=== PATIENT | female | born 2000 | race Two or more races ===

== ENCOUNTER 2022-04-23 15:19 | Emergency (ER) | payer OTHER ==
[~2022-04-23] VITALS: Ht 162.6 cm; Wt 76.7 kg
[2022-04-23 15:48] VITALS: BP 115/75
--- NOTE | 2022-04-23 17:19 | NUR ---
CALLED TO ROOM-IN,NO ANSWER
[2022-04-23] MEDS ORDERED: ACET325T53 PO (19:15)
[2022-04-23] MEDS ORDERED: IBUP-1955 PO (19:15)
[2022-04-23] MEDS ORDERED: IBUPROFEN 600 MG TABLET ONE (19:27)
[2022-04-23] MEDS ORDERED: IBUPROFEN 600 MG TABLET PO ONE (19:30)
== END 2022-04-23 20:10 | disposition home or self-care (01) ==
LOC: ER 15:22
DX: J06.9 Acute upper respiratory infection, unspecified (principal); R05.9 Cough, unspecified